=== PATIENT | female | born 1985 ===

== ENCOUNTER 2017-06-28 23:50 | Emergency (ER) | payer SELFPAY ==
[2017-06-29 00:06] VITALS: RESP 16
[2017-06-29] MEDS ORDERED: Sodium Chloride 0.9% 1,000 ML IV STA (00:32)
[2017-06-29] MEDS ORDERED: Famotidine 20mg/50ml 20 MG/50 ML BAG IVPB ONE (00:45)
[2017-06-29 00:48] LABS: BASO # 0.1 K/uL (0.0-0.2); BASO % 0.6 % (0.0-2.0); EOS # 0.3 K/uL (0.0-0.7); EOS % 3.8 % (0.0-4.0); HEMOGLOBIN 12.6 g/dL (12.0-16.0); LYMPH # 2.1 K/uL (1.0-4.3); MEAN CELL VOLUME 84.3 fl (81.0-99.0); MEAN CORPUSCULAR HEMOGLOBIN 27.7 pg (27.0-31.0); MEAN CORPUSCULAR HGB CONC 32.8 g/dL (33.0-37.0); MEAN PLATELET VOLUME 7.9 fl (7.2-11.7); MONO # 0.9 K/uL (0.0-0.8); MONO % 10.7 % (0.0-10.0); NEUT # 4.9 K/uL (1.8-7.0); NEUT % 59.9 % (50.0-75.0); RBC 4.56 Mil/uL (3.80-5.20); RED CELL DISTRIBUTION WIDTH 15.2 % (11.5-14.5); WHITE BLOOD COUNT 8.2 K/uL (4.8-10.8)
[2017-06-29 00:52] LABS: SQUAMOUS EPITHIAL 2 /hpf (0-5); URINE BACTERIA RARE (<OCC); URINE BILIRUBIN NEGATIVE (NEGATIVE); URINE BLOOD NEGATIVE (NEGATIVE); URINE CLARITY SLIGHTY-CLOUDY (Clear); URINE COLOR YELLOW (YELLOW); URINE GLUCOSE (UA) NEG (Normal); URINE LEUKOCYTE ESTERASE TRACE Leu/uL (Negative); URINE PROTEIN NEGATIVE (NEGATIVE); URINE UROBILINOGEN 0.2-1.0 mg/dL (0.2-1.0)
[2017-06-29] MEDS ORDERED: Famotidine 20mg/50ml 20 MG/50 ML BAG IVPB STA (00:53)
[2017-06-29 00:55] LABS: ALB/GLOB RATIO 1.2 (1.0-2.1); ALT/SGPT 28 U/L (9-52); AST/SGOT 22 U/L (14-36); BLOOD UREA NITROGEN 10 mg/dl (7-17); GFR AFRICAN-AMERICAN > 60; GFR NON-AFRICAN AMERICAN > 60; LIPASE 193 U/L (23-300)
[2017-06-29] MEDS ORDERED: Morphine 4 MG/ML VIAL IVP ONE (01:07)
[2017-06-29] MEDS ORDERED: Morphine 4 MG/ML VIAL ONE (01:10)
--- NOTE | 2017-06-29 01:44 | ED PDOC ---
HPI: Abdomen Time Seen by Provider: 06/29/17 00:23 Chief Complaint (Nursing): Abdominal Pain Chief Complaint (Provider): Abdominal Pain History Per: Patient History/Exam Limitations: no limitations Onset/Duration Of Symptoms: Hrs (x1) Outside of [place] travel?: No Current Symptoms Are (Timing): Still Present Context: Food Location Of Pain/Discomfort: RUQ, Epigastric Associated Symptoms: Nausea, Vomiting. denies: Fever, Diarrhea Additional Complaint(s): 31 year old female presents to ED with complaints of abdominal pain x1 hour and has a past medical history of a biliary colic and portal fibrosis. Notes eating a cheeseburger and fries earlier tonight and subsequently developing RUQ and epigastric pain that radiates to her back. (+) nausea and vomiting x1 episode ( non-bloody, non-bilious). (-) fever, diarrhea, cough, SOB, or chest pain. PCP: None Past Medical History Reviewed: Historical Data, Nursing Documentation, Vital Signs Vital Signs: Last Vital Signs Temp 98.0 F 06/29/17 00:02 Pulse 85 06/29/17 00:02 Resp 16 06/29/17 00:02 BP 110/66 06/29/17 00:02 Pulse Ox 100 06/29/17 03:28 - Medical History PMH: Asthma Other PMH: biliary colic, portal fibrosis - Family History Family History: States: Unknown Family Hx - Social History Current smoker - smoking cessation education provided: No Ex-Smoker (has not smoked in the last 12 months): No Alcohol: None Drugs: Denies - Home Medications Home Medications: Ambulatory Orders Medication Instructions Recorded Famotidine [Pepcid] 20 mg PO Q12 #14 tab 06/29/17 Mycophenolate [Cellcept Cap] 1,000 mg PO HS 06/29/17 Mycophenolate [Cellcept Cap] 1,500 mg PO QAM 06/29/17 traMADol [Ultram] 50 mg PO TID PRN #9 tab 06/29/17 - Allergies Allergies/Adverse Reactions: Allergies Allergy/AdvReac Type Severity Reaction Status Date / Time piperacillin [From Zosyn] Allergy ANGIOEDEMA Verified 06/29/17 00:06 tazobactam [From Zosyn] Allergy ANGIOEDEMA Verified 06/29/17 00:06 Review of Systems ROS Statement: Except As Marked, All Systems Reviewed And Found Negative Constitutional: Negative for: Fever Cardiovascular: Negative for: Chest Pain Respiratory: Negative for: Cough, Shortness of Breath Gastrointestinal: Positive for: Nausea, Vomiting, Abdominal Pain. Negative for : Diarrhea Physical Exam - Reviewed Nursing Documentation Reviewed: Yes Vital Signs Reviewed: Yes - Physical Exam Appears: Positive for: Non-toxic, Uncomfortable Skin: Positive for: Normal Color, Warm, Dry Cardiovascular/Chest: Positive for: Regular Rate, Rhythm. Negative for: Bradycardia Respiratory: Positive for: Normal Breath Sounds. Negative for: Respiratory Distress Gastrointestinal/Abdominal: Positive for: Soft, Tenderness (RUQ tenderness). Negative for: Normal Exam Back: Positive for: Normal Inspection. Negative for: L CVA Tenderness, R CVA Tenderness Extremity: Positive for: Normal ROM. Negative for: Deformity Neurologic/Psych: Positive for: Alert, Oriented. Negative for: Motor/Sensory Deficits - Laboratory Results Result Diagrams: 06/29/17 00:42 06/29/17 00:42 - ECG O2 Sat by Pulse Oximetry: 100 (RA) Pulse Ox Interpretation: Normal Medical Decision Making Medical Decision Makin Initial impression: RUQ pain in setting of known history of biliary colic and portal fibrosis Initial plan: * CTA A/P * Labs * Lipase * UPreg * UDip * Morphine 2mg IVP * NS IV * Pepcid 20mg in 50mL IVPB * Toradol 15mg IVP * Zofran Inj 4mg IVP * UA * Re-eval 0320 CT FINDINGS: Limitations: Lack of intravenous contrast. Lung bases: Moderate pulmonary fibrosis. 0.5 cm LEFT upper lobe nodule. Suture line within right lower lobe. Mediastinum: Dilated distal esophagus containing debris. ABDOMEN: Liver: Unremarkable. Gallbladder and bile ducts: Mild gallbladder distention. Gallstones. No significant ductal dilation. Pancreas: Unremarkable. No ductal dilation. Spleen: No splenomegaly. Adrenals: No mass. Kidneys and ureters: No renal calculi. No hydronephrosis. Stomach and bowel: No definite mural thickening. Several mild to moderately dilated loops of proximal small bowel. Nondistended loops of mid to distal small bowel. PELVIS: Appendix: Normal caliber. No inflammation. Bladder: Unremarkable. No stones. Reproductive: Unremarkable as visualized. ABDOMEN and PELVIS: Intraperitoneal space: No significant fluid collection. No free air. Bones/joints: No acute fracture. Soft tissues: Unremarkable. Vasculature: Unremarkable. No aneurysm. Lymph nodes: Few calcified lymph nodes within mesentery. IMPRESSION: 1. Gallbladder distention with cholelithiasis. Suggest ultrasound. 2. Small bowel dilatation. DDX: Paralytic ileus, obstruction. 3. Pulmonary nodule. For low-risk patients, no follow-up is necessary. For high- risk patients (smoking history or other known risk factors) an optional CT at 12 months could be performed. 4. Incidental/non-acute findings are described above 0450 Upon re-evaluation, patient notes marked improvement in symptoms. Patient is stable for discharge and agrees to follow up with PCP. Provider instructed patient on her need to avoid fatty foods. Dx: cholelithiasis Scribe Attestation: Documented by Leti Rodriguez acting as a scribe for Tino Duong MD. Scribe Attestation: All medical record entries made by the Scribe were at my direction and personally dictated by me. I have reviewed the chart and agree that the record accurately reflects my personal performance of the history, physical exam, medical decision making, and the department course for this patient. I have also personally directed, reviewed, and agree with the discharge instructions and disposition. Disposition - Clinical Impression Clinical Impression: Cholelithiasis - Disposition Disposition: Routine/Home Disposition Time: 04:50 Condition: IMPROVED Prescriptions: Famotidine [Pepcid] 20 mg PO Q12 #14 tab traMADol [Ultram] 50 mg PO TID PRN #9 tab PRN Reason: abdominal pain Instructions: Gallstones Forms: [facility] Connect (Greenlandic) Print Language: DOMINICAN
--- NOTE | 2017-06-29 03:22 | CT ---
EXAM: CT Abdomen and Pelvis Without Intravenous Contrast CLINICAL HISTORY: 31 years old, female; Pain; Abdominal pain; Localized; Right upper quadrant (ruq); Additional info: Ruq pain TECHNIQUE: Axial computed tomography images of the abdomen and pelvis without intravenous contrast. All CT scans at this facility use one or more dose reduction techniques, viz.: automated exposure control; ma/kV adjustment per patient size (including targeted exams where dose is matched to indication; i.e. head); or iterative reconstruction technique. Coronal and sagittal reformatted images were created and reviewed. COMPARISON: No relevant prior studies available. FINDINGS: Limitations: Lack of intravenous contrast. Lung bases: Moderate pulmonary fibrosis. 0.5 cm LEFT upper lobe nodule. Suture line within right lower lobe. Mediastinum: Dilated distal esophagus containing debris. ABDOMEN: Liver: Unremarkable. Gallbladder and bile ducts: Mild gallbladder distention. Gallstones. No significant ductal dilation. Pancreas: Unremarkable. No ductal dilation. Spleen: No splenomegaly. Adrenals: No mass. Kidneys and ureters: No renal calculi. No hydronephrosis. Stomach and bowel: No definite mural thickening. Several mild to moderately dilated loops of proximal small bowel. Nondistended loops of mid to distal small bowel. PELVIS: Appendix: Normal caliber. No inflammation. Bladder: Unremarkable. No stones. Reproductive: Unremarkable as visualized. ABDOMEN and PELVIS: Intraperitoneal space: No significant fluid collection. No free air. Bones/joints: No acute fracture. Soft tissues: Unremarkable. Vasculature: Unremarkable. No aneurysm. Lymph nodes: Few calcified lymph nodes within mesentery. IMPRESSION: 1. Gallbladder distention with cholelithiasis. Suggest ultrasound. 2. Small bowel dilatation. DDX: Paralytic ileus, obstruction. 3. Pulmonary nodule. For low-risk patients, no follow-up is necessary. For high-risk patients (smoking history or other known risk factors) an optional CT at 12 months could be performed. 4. Incidental/non-acute findings are described above.
[2017-06-29 05:28] VITALS: BP 119/72; PULSE 81; TEMP 97.9; O2SAT 99
== END 2017-06-29 05:13 | disposition home or self-care (01) ==
LOC: H.ER 23:50
DX: K80.20 Calculus of gallbladder without cholecystitis without obstruction (principal); J84.10 Pulmonary fibrosis, unspecified; J45.909 Unspecified asthma, uncomplicated; Z88.0 Allergy status to penicillin
CPT/HCPCS: 74176; 80053; 81003; 81025; 83690; 85025; 96365; 96375; 99285; J1885; J2270; J2405; J7040